=== PATIENT | female | born 1965 | race African-American/Black ===

== ENCOUNTER 2019-10-17 15:04 | Emergency (ER) | payer MEDICARE ==
[~2019-10-17] VITALS: Ht 162.6 cm; Wt 88.0 kg
--- NOTE | 2019-10-17 15:25 | NUR ---
PT BIBPA FORM [facility], C/O COUGH AND CONGESTION FOR 1 WEEK, FEVER YESTERDAY, AFEBRILE, NOT IN RESPIRATORY DISTRESS ,AAOX4, HOOKED TO MONITOR, KEPT RESTED AND COMFORTABLE, WILL CONTINUE TO MONITOR.
[2019-10-17] MEDS ORDERED: IV NS 0.9% 1,000 ML BAG IV ONE (15:30)
--- NOTE | 2019-10-17 15:30 | NUR ---
SEEN AND EXAMINED BY .
--- NOTE | 2019-10-17 15:49 | NUR ---
ANTISQUEAK CHALKER AT BEDSIDE FOR XRAY.
--- NOTE | 2019-10-17 15:55 | NUR ---
IV LINE ESTABLISHED, BLOOD DRAWN AND SENT TO LAB.
--- NOTE | 2019-10-17 16:01 | NUR ---
URINE SPECIMEN COLLECTED AND SENT TO LAB.
[2019-10-17 16:15] LABS: APPEARANCE,URINE Clear (CLEAR); BILIRUBIN,URINE SMALL (NEGATIVE); BLOOD, URINE Negative Ery/uL (NEGATIVE); COLOR,URINE Dark (YELLOW); KETONES,URINE Negative (NEGATIVE); LEUKOCYTE ESTERASE ,URINE Negative (NEGATIVE); NITRITE, URINE Negative (NEGATIVE); PROTEIN,URINE Negative (NEGATIVE); UGLUCOSE Negative (NEGATIVE)
[2019-10-17 16:16] LABS: BASOPHILS % (AUTO) 0.5 % (0.0-2.0); EOSINOPHILS % (AUTO) 1.6 % (0.0-6.0); HEMATOCRIT 35 % (33-45); HEMOGLOBIN 11.6 g/dL (11.5-14.8); LYMPHOCYTES % (AUTO) 21.3 % (20.0-44.0); MEAN CORPUSCULAR HGB CONC 33 g/dl (31.0-36.0); MEAN CORPUSCULAR VOLUME 85 fL (82-100); MONOCYTES # (AUTO) 0.8 /CMM (0.1-1.30); MONOCYTES % (AUTO) 16.1 % (2.0-12.0); NEUTROPHILS % (AUTO) 60.5 % (43.0-81.0); PLATELET COUNT (AUTO) 95 /CMM (150-450); RED BLOOD CELL COUNT(AUTO) 4.14 MIL/uL (4.0-5.2); WHITE BLOOD COUNT (AUTO) 4.9 K/uL (4.3-11.0)
[2019-10-17 16:18] LABS: ALANINE AMINOTRANSFERASE 37 U/L (12-78); ALBUMIN 2.5 g/dL (3.4-5.0); ALKALINE PHOSPHATASE 92 U/L (46-116); ASPARTATE AMINOTRANSFERASE 63 U/L (15-37); BILIRUBIN,DIRECT 0.8 mg/dL (0.0-0.2); BILIRUBIN,TOTAL 1.5 mg/dL (0.2-1.0); CALCIUM, SERUM 8.2 mg/dL (8.5-10.1); CARBON DIOXIDE 25 mmol/L (21-32); CHLORIDE 99 mmol/L (98-107); CREATININE 1.6 mg/dL (0.6-1.3); GLUCOSE 112 mg/dL (74-106); SODIUM SERUM 134 mmol/L (136-145); TOTAL PROTEIN, SERUM 6.5 g/dL (6.4-8.2); UREA NITROGEN, BLOOD 19 mg/dL (7-18)
[2019-10-17 16:20] LABS: POTASSIUM 2.7 mmol/L (3.5-5.1)
[2019-10-17 16:22] VITALS: BP 100/45
[2019-10-17] MEDS ORDERED: POTASSIUM CHLORIDE 20 MEQ TAB.PRT.SR PO ONE ×2 (16:30→16:39)
[2019-10-17 16:46] LABS: BACTERIA,URINE Few /HPF (None Seen); RBC,URINE NONE SEEN /HPF (0-2); SQUAMOUS EPITHELIAL CELL,UR Few /HPF (None Seen); WBC,URINE NONE SEEN /HPF (0-3)
--- NOTE | 2019-10-17 17:32 | NUR ---
CALLED [facility] FOR TRANSPORT TO [facility]. ETA 1930.
--- NOTE | 2019-10-17 17:40 | NUR ---
IV removed. Catheter intact and site benign. Pressure and 4x4 applied to site. No bleeding noted. Patient discharged to home in stable condition. Written and verbal after care instructions given. Patient verbalizes understanding of instruction.
--- NOTE | 2019-10-17 17:46 | NUR ---
REPORT GIVEN TO EMS FOR PT TRANSFER BACK TO FACILITY.
== END 2019-10-17 17:50 | disposition home or self-care (01) ==
LOC: ER 15:11
DX: B34.9 Viral infection, unspecified (principal); I10 Essential (primary) hypertension
CPT/HCPCS: 36415; 71045; 80048; 80076; 81001; 83605; 84145; 84484; 85025; 85730; 87040 ×2; 87086; 87633; 87804 ×2; 93005; 99285; J7030; 81000-TC